=== PATIENT | male | born 1940 | race Caucasian/White ===

== ENCOUNTER 2017-12-03 18:40 | Day surgery (SDC) | payer MEDICAID, OTHER ==
--- NOTE | 2017-12-03 18:48 | CPEKG ---
Heart Rate: 88 RR Interval: 682 P-R Interval: 220 QRSD Interval: 126 QT Interval: 408 QTC Interval: 494 P [place]: 46 QRS [place]: -57 T Wave [place]: 172 EKG Severity - ABNORMAL ECG - EKG Impression: SINUS RHYTHM EKG Impression: FIRST DEGREE AV BLOCK EKG Impression: PROBABLE LEFT ATRIAL ABNORMALITY EKG Impression: IVCD EKG Impression: Inferolateral STT changes, no old ECGs to compare Electronically Signed By: Forrest Lane 06-Dec-2017 08:54:47
[2017-12-03] MEDS ORDERED: NS 1,000 ML IV ONE (18:55)
--- NOTE | 2017-12-03 18:56 | EDPHY ---
H & P Stated Complaint: Cardiac Alert Time Seen by Provider: 12/03/17 18:40 HPI/ROS: CHIEF COMPLAINT: Cardiac alert HISTORY OF PRESENT ILLNESS: The patient presents the ED as a cardiac alert with acute chest pain that began at 6:20 p.m.. The patient has a history of an aortic valve replacement. He is not anticoagulated. He does have a history of hypertension hyperlipidemia. The patient received aspirin prior to arrival. He was noted to be hypotensive. The patient currently complains of 1/10 chest discomfort. His chest discomfort was 5/10 at its worst. The patient reports the pain did radiate to his neck. REVIEW OF SYSTEMS: A comprehensive 10 point review of systems is otherwise negative aside from elements mentioned in the history of present illness. Source: Patient Exam Limitations: No limitations - Personal History Current Tetanus Diphtheria and Acellular Pertussis (TDAP): Yes - Medical/Surgical History Hx Asthma: No Hx Chronic Respiratory Disease: No Hx Diabetes: No Hx Cardiac Disease: Yes Hx Renal Disease: No Hx Cirrhosis: No Hx Alcoholism: No Hx HIV/AIDS: No Hx Splenectomy or Spleen Trauma: No Other PMH: Hypertension, hyperlipidemia aortic valve replacement with aortic repair, lymphoma - Social History Smoking Status: Never smoked - Physical Exam Exam: General Appearance: Alert, mildly diaphoretic, appears slightly uncomfortable Eyes: Pupils equal and round no pallor or injection ENT, Mouth: Mucous membranes moist Respiratory: There are no retractions, lungs are clear to auscultation Cardiovascular: Regular rate and rhythm Gastrointestinal: Abdomen is soft and nontender, no masses, bowel sounds normal Neurological: 5/5 strength all 4 extremities Skin: Warm and dry, no rashes Musculoskeletal: Neck is supple nontender Extremities: 2+ pulses noted all 4 extremities Psychiatric: Patient is oriented X 3, there is no agitation Constitutional: Initial Vital Signs Temperature (C) 36.4 C 12/03/17 18:49 Heart Rate 89 12/03/17 18:49 Respiratory Rate 18 12/03/17 18:49 Blood Pressure 83/37 L 12/03/17 18:49 O2 Sat (%) 99 12/03/17 18:49 O2 Delivery Mode Room Air Allergies/Adverse Reactions: hydrochlorothiazide Allergy (Verified 12/03/17 18:48) Sulfa (Sulfonamide Antibiotics) Allergy (Verified 12/03/17 18:48) Home Medications: Medication Instructions Recorded Aspirin 12/03/17 Medical Decision Making - Diagnostics EKG Interpretation: EKG: Complete interpretation has been separately recorded in the [facility] archive. Summary impression: Left bundle branch block with ST segment elevation noted in the anterior leads with reciprocal ST segment depression in the lateral leads. Positive via [place] criteria. Imaging Results: Imaging Impressions Chest X-Ray 12/03/17 18:44 Impression: Possible mild cardiomegaly without failure. A routine PA and lateral chest would be useful, when the patient is clinically able. ED Course/Re-evaluation: The patient presents the ED with acute chest pain and EKG changes worrisome for ST segment elevation myocardial infarction. The patient was hypotensive prior to arrival. He had an IV established. He received 1 L of normal saline. Dr. Syed Berg is in the emergency department evaluated the patient at 6: 55 p.m.. The patient will be taken emergently to the cardiac catheterization lab. The patient was taken emergently to the cardiac catheterization lab. He will be admitted to the intensive care unit. Differential Diagnosis: Differential diagnosis considered includes acute myocardial infarction, aortic dissection, pulmonary embolism, metabolic abnormality Critical Care Time: Critical care time exclusive of procedures and exclusive of the PA's time was 31 minutes, performed by myself, Alexi Otero MD. The patient presents to the ED with acute chest pain and STEMI. The patient was taken emergently to the cardiac catheterization lab. I did obtain old records from his prior healthcare system. - Data Points Laboratory Results: Laboratory Results 12/03/17 18:40 12/03/17 12/03/17 12/03/17 18:50 18:40 18:40 WBC Pending RBC Pending Hgb Pending POC Hgb 14.6 gm/dL gm/dL (13.7-17.5) Hct Pending POC Hct 43 % % (40-51) MCV Pending MCH Pending MCHC Pending RDW Pending Plt Count Pending MPV Pending Neut % (Auto) Pending Lymph % (Auto) Pending [place] % (Auto) Pending Eos % (Auto) Pending Baso % (Auto) Pending Nucleat RBC Rel Count Pending Absolute Neuts (auto) Pending Absolute Lymphs (auto) Pending Absolute Monos (auto) Pending Absolute Eos (auto) Pending Absolute Basos (auto) Pending Absolute Nucleated RBC Pending Immature Gran % Pending Immature Gran # Pending POC Sodium 143 mEq/L mEq/L (135-145) Sodium 142 mEq/L mEq/L (135-145) POC Potassium 4.4 mEq/L mEq/L (3.3-5.0) Potassium 4.7 mEq/L mEq/L (3.3-5.0) POC Chloride 106 mEq/L mEq/L (97-110) Chloride 105 mEq/L mEq/L (97-110) Carbon Dioxide 22 mEq/l mEq/l (22-31) Anion Gap 15 mEq/L mEq/L (8-16) POC BUN 38 mg/dL H mg/dL (7-23) BUN 37 mg/dL H mg/dL (7-23) Creatinine 1.8 mg/dL H mg/dL (0.7-1.3) POC Creatinine 1.9 mg/dL H mg/dL (0.7-1.3) Estimated GFR 37 Glucose 146 mg/dL H mg/dL (70-100) POC Glucose 155 mg/dL H mg/dL (70-100) Calcium 9.1 mg/dL mg/dL (8.5-10.4) Creatine Kinase 247 IU/L H IU/L (0-224) CK-MB (CK-2) Fraction 6.11 ng/mL H ng/mL (0.00-3.19) CK-MB (CK-2) % 2.5 % % (0.0-4.0) Creatine Kinase Interp NEGATIVE (NEGATIVE) Troponin I 0.013 ng/mL ng/mL (0.000-0.034) Medications Given: Discontinued Medications Clopidogrel Bisulfate (Plavix) 600 mg PO EDNOW ONE Stop: 12/03/17 18:59 Last Admin: 12/03/17 19:01 Dose: 600 mg Sodium Chloride (Ns) 1,000 mls @ 0 mls/hr IV ONCE ONE PRN Reason: Wide Open Stop: 12/03/17 18:56 Last Admin: 12/03/17 18:56 Dose: 1,000 mls Point of Care Test Results: 12/03/17 18:50 POC Sodium 143 POC Potassium 4.4 POC Chloride 106 POC BUN 38 H POC Creatinine 1.9 H POC Glucose 155 H Departure - Departure Disposition: [facility] Inpatient Acute Clinical Impression: ST segment elevation myocardial infarction (STEMI) of anterolateral wall, subsequent episode of care Condition: Critical
[2017-12-03] MEDS ORDERED: CLOPIDOGREL BISULFATE 75 MG TAB PO ONE (18:58)
[2017-12-03] MEDS ORDERED: fentaNYL 100 MCG/2 ML INJ ONE (19:03)
[2017-12-03] MEDS ORDERED: MIDAZOLAM 2 MG/2 ML VIAL ONE (19:03)
[2017-12-03] MEDS ORDERED: LIDOCAINE 1% 300 MG/30 ML SDV ONE (19:03)
[2017-12-03] MEDS ORDERED: IOPAMIDOL (ISOVUE-370) 150 ML BTL IV ONE (19:04)
[2017-12-03 19:18] VITALS: BP 93/63
[2017-12-03 19:25] LABS: CREATINE KINASE 247 IU/L (0-224)
[2017-12-03] MEDS ORDERED: HEPARIN 10,000 UNIT/10 ML MDV (1,000 UNIT/ML) ONE (19:53)
[2017-12-03 20:19] LABS: PLATELET COUNT 59 10^3/uL (150-400)
--- NOTE | 2017-12-03 20:25 | GHP ---
[f rep st] HISTORY AND PHYSICAL DATE OF ADMISSION: 12/03/2017 TIME: 7:17 p.m. This is a cardiac alert note. HISTORY OF PRESENT ILLNESS: The patient is 77 years old. 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 He has been well for 10 years. He was visiting [place] today from [place], when he developed the acute onset of substern al chest pressure associated with nausea, vomiting, and diaphoresis. 911 was activated. Initial fie ld EKG showed ST elevation and cardiac alert was ordered. On arrival, blood pressure is 70 over palp able. He is diaphoretic, ill-appearing male, with ongoing chest discomfort. EKG shows acute anterol ateral injury pattern and he is referred to the cardiac filling station laborer. On my arrival, he is again having ongoing pain. Blood pressure is improved somewhat with fluids, but he remains somewhat shocky. PAST MEDICAL HISTORY: Significant for: 1. Hodgkin disease, status post mantle radiation. 2. History of valvular heart disease. MEDICATIONS: Please see the attached. ALLERGIES: Hydrochlorothiazide, sulfa. REVIEW OF SYSTEMS: Positive for nausea, vomiting. No abdominal pain. He has had no hematuria, blanca temesis, or melena. He has modest shortness of breath without cough. He has had no PND, orthopnea, syncope, or near syncope. A 10-point review of systems otherwise negative. PHYSICAL EXAMINATION: VITAL SIGNS: Initial blood pressure was 70 over palpable. It is currently 10 0 over palpable. GENERAL: An ill-appearing, diaphoretic male in moderate distress. He is alert and oriented, moving extremities normally. VASCULAR: Radial pulses are +2 and equal. Dorsalis pedis are +2 and equal. Femoral pulses are +2 and equal. HEENT: He had no scleral icterus. His orophary nx was clear. NECK: JVP at 13 cm. CHEST: Bibasilar rales, but otherwise clear. He has a sternoto my that is well healed. HEART: He had a regular rate and rhythm with an S4 gallop. ABDOMEN: Somew hat tympanitic without tenderness. There is no rebound or guarding. EXTREMITIES: No edema. SKIN: No rash. X-RAY DATA: Pending. EKG shows acute injury pattern with left bundle branch block and ST depression laterally. IMPRESSION: Acute onset substernal chest pressure consistent with an acute coronary syndrome. Abnor mal EKG confirming. PLAN: Diagnostic coronary angiogram with an eye towards intervention. Risks and benefits of this ap proach were discussed with the patient and we will proceed. /[id number]/MODL
[2017-12-03] MEDS ORDERED: VECURONIUM BROMIDE 10 MG VIAL IVP ONE (20:31)
[2017-12-03] MEDS ORDERED: ROCURONIUM 100 MG/10 ML VIAL ONE (20:32)
[2017-12-03 20:43] LABS: INR 1.72 (0.83-1.16); PROTIME(PATIENT) 20.3 SEC (12.0-15.0)
--- NOTE | 2017-12-03 20:49 | PDDXCAT ---
Diagnostic Cath Note - . 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: Otis Indication: other (Cardiac arrest) - Procedure Access: right groin Procedure: left heart catheterization, coronary angiography, other (PCI, insertion of intra-aortic balloon pump, insertion of a temporary pacing wire, continuous ACLS) - Materials Left Heart Cath size: 6F - Findings-Left Heart Catheterization LM: Unobstructed LAD: Apical occlusion with SHEA grade 2 flow LCX: Widely unobstructed RCA: Proximal thrombotic occlusion with SHEA grade 2 flow LVEF: Not assessed, coronary angiogram did show severe aortic insufficiency suggesting potential acute malfunction of aortic valve prosthesis. This was seen postprocedure. Complications: Continuous CPR with PEA, complete heart block, VF, cardiac . Assessment: Obstructive coronary artery disease with apical occlusion of the LAD , proximal RCA stenosis with successful PCI of the proximal RCA. Query acute aortic valve dysfunction with aortic insufficiency. Pulseless electrical activity on arrival to the dental laboratory worker with continuous CPR for over 45 min, complete heart block with temporary pacemaker insertion, VF x3 requiring cardioversion, ultimate cardiac with pump failure. Intervention: On arrival to the cardiac dental laboratory worker the patient experienced PA with acute cessation of respiration and loss of blood pressure. Initial CPR was performed. Airway was managed. He was administered epinephrine and atropine with adventist of a perfusing rhythm. He was intubated by Anesthesia. Sheaths were inserted in the right femoral artery and right femoral vein. The patient continued to have PA requiring ongoing CPR. ACLS was initiated. The expect patient experienced complete heart block on the monitor. A temporary pacing wire was advanced into the right ventricle and capture was obtained. Limited coronary angiogram was performed to the left coronary artery revealing patent left main, patent LAD to the apex with a occlusion at the apex and SHEA grade 2 flow. The circumflex was unobstructed. Continued CPR was performed with ongoing ACls as described in the case log. A right coronary injection revealed a thrombotic occlusion proximally. It was elected to proceed with PCI quickly. With ongoing CPR a 6 Cymraes JR4 guide was used to intubate the right coronary. A single inflation was performed after passing a wire into the distal RCA with a 3 mm balloon. Repeat angiogram showed no improvement in proximal stenosis. A 2nd inflation was performed improving the lesion. A 3.0 x 12 mm synergy stent was placed on the wire using a [employer]BD[employer] Media as a seth the stent was placed proximally and deployed using a single inflation. Angiogram showed improvement luminal diameter with SHEA grade 2 flow. Intra balloon pump was then placed over the wire and positioned in the aorta with ongoing CPR. This was done with full understanding that the patient had a bioprosthetic aortic valve. With ongoing CPR laboratory data was assessed. His pH was 6.95 with a pCO2 of 80. Potassium was within normal limits. Without CPR there was no perfusing rhythm. After 1 hr was elected to stop ACLS. The patient had no spontaneous breathing or circulation. I discussed this with the family. Review of the diagnostic angiograms did suggest the possibility of acute aortic valve malfunction with what appears to be wide open aortic insufficiency. This would be a more explanatory reason for the patient's acute decompensation with pulseless electrical activity and while there was critical coronary artery disease there was antegrade flow. Will discuss potential autopsy with the patient's family. I would favor an assessment of his aortic valve prosthesis. Patient was pronounced at 8:30 p.m.. Family was notified. He has taken to the ICU to allow his family to visit with him. Final diagnosis Cardiac alert with cardiac arrest define by pulseless electrical activity, complete heart block, ventricular fibrillation with revascularization. Temporary insertion of a temporary pacer for complete heart block, insertion of an intra balloon pump for support. Continue with CPR with failed ACLS. Patient Problems: Problems Problem Status Onset ST segment elevation myocardial infarction (STEMI) of anterolateral wall, subsequent episode of care Acute
--- NOTE | 2017-12-03 20:58 | PDDCSUM ---
Discharge Summary Discharge Summary: note. Patient was admitted from the emergency department to the cardiac catheterization lab in the setting of acute chest pain new left bundle branch block and shock. On arrival to the cardiac catheterization lab suite he developed pulseless electrical activity. CPR was initiated with aggressive ACLS. Cardiac catheterization did reveal obstructive lesions in the apical LAD and proximal RCA. The proximal RCA stenosis was treated. Procedure was complicated by pulseless electrical activity requiring ACLS, complete heart block with insertion of a temporary pacemaker ventricular fibrillation requiring a synchronous cardioversion. Despite aggressive resuscitation the patient succumbed and was pronounced at 8:30 pm. Review of angiogram suggests the potential that this was related to aortic valve prosthetic failure. Even in the presence of significant coronary disease I do not think this explains adequately his initial presentation of shock, development of PEA and heart block. Will ask the patient's family for autopsy to determine cause of . He has taken to the ICU for visitation by the family. Date of admission 12/03/2017. Date of 12/03/2017 at 8:30 p.m..
[2017-12-03] MEDS ORDERED: DOPamine/DEXTROSE 400 MG/250 ML BAG IV ONE (22:18)
[2017-12-03] MEDS ORDERED: ATROPINE SULFATE 1 MG/10 ML SYR ONE (22:18)
[2017-12-03] MEDS ORDERED: EPINEPHrine 1 MG/10 ML SYR IVP ONE (22:18)
[2017-12-03] MEDS ORDERED: SODIUM BICARBONATE 10 MEQ/10 ML SYR IVP ONE (22:18)
[2017-12-03] MEDS ORDERED: CALCIUM CHLORIDE 1 GM/10 ML INJ ONE (22:18)
--- NOTE | 2017-12-05 13:33 | PDANEPAE ---
ANE History of Present Illness Emergent intubation ANE Past Medical History - Cardiovascular History Cardiovascular History Comment: Pt received chest compressions. Code blue called. Mask ventilation performed. Chest movement with each ventilation however SaO2 will not work. Color blue. Neck veins easily visible. Rocuronium 75mg given. glidescope 7.[address] ETCO2 positive. EBBS 22 cm. Cardiology running code. Chest compression for 50 plus minutes - Pulmonary History Hx Oxygen in Use at Home: No - Endocrine History Hx Diabetes: No ANE Review of Systems Review of Systems: ANE Patient History - Allergies Allergies/Adverse Reactions: hydrochlorothiazide Allergy (Verified 12/03/17 18:48) Sulfa (Sulfonamide Antibiotics) Allergy (Verified 12/03/17 18:48) - Home Medications Home Medications: Aspirin EC [Aspirin EC 81 mg (*)] 81 mg PO DAILY 12/03/17 [Last Taken 12/03/17 08:00] Cholecalciferol Vit D3 [Vitamin D3] 400 units PO DAILY 12/03/17 [Last Taken 08:00] Cyanocobalamin [Vitamin B12 (*)] 500 mcg PO MWF@09 12/03/17 [Last Taken 08:00] Herbals/Supplements -Info Only 1 ea PO DAILY 12/03/17 [Last Taken Unknown] Lisinopril [Zestril 5 mg (*)] 5 mg PO DAILY 12/03/17 [Last Taken 12/03/17 08:00] Multivitamins [Multivitamin (*)] 1 tab PO DAILY 12/03/17 [Last Taken 12/03/17 08 :00] Rosuvastatin Calcium [Crestor 20mg (*)] 20 mg PO DAILY 12/03/17 [Last Taken 08:00] Vitamin B Complex [Vitamin B Complex (OTC)] 1 tab PO DAILY 12/03/17 [Last Taken 12/03/17 08:00] - Smoking Hx Smoking Status: Never smoked ANE Labs/Vital Signs - Labs Result Diagrams: 12/03/17 20:05 12/03/17 20:05 - Vital Signs Blood Pressure: 93/63 Heart Rate: 92 Respiratory Rate: 18 O2 Sat (%): 96 Height: 180.34 cm Weight: 74.389 kg ANE Physical Exam - Airway Neck exam: decreased ROM (CPR ) - ASA Status ASA Status: V, E
--- NOTE | 2017-12-05 13:36 | POSTANESTH ---
Post Anesthetic Evaluation Cardiovascular Status: Other, See Comment Respiratory Status: Other, See Comment Level of Consciousness/Mental Status: Other, See Comment Nausea/Vomiting Control: Inadeq, Add Tx Reqired (Pt. did not survive acute cardiac event.)
== END 2017-12-03 22:48 | disposition expired ==
LOC: FCATH 19:05 → F2N 19:05 → UNDOADMIN 19:05 → UNDODISIN 22:48 → FCATH 22:48
PROVIDERS: ATTEND Internal Medicine Interventional Cardiology
PROC: 5A02210 Assistance with Cardiac Output using Balloon Pump, Continuous (ICD-10-PCS; principal; 2017-12-03)
PROC: B2111ZZ Fluoroscopy of Multiple Coronary Arteries using Low Osmolar Contrast (ICD-10-PCS; principal; 2017-12-03)
PROC: 4A023N7 Measurement of Cardiac Sampling and Pressure, Left Heart, Percutaneous Approach (ICD-10-PCS; principal; 2017-12-03)
PROC: 5A2204Z Restoration of Cardiac Rhythm, Single (ICD-10-PCS; principal; 2017-12-03)
PROC: 027034Z Dilation of Coronary Artery, One Artery with Drug-eluting Intraluminal Device, Percutaneous Approach (ICD-10-PCS; principal; 2017-12-03)
DX: T82.897A Other specified complication of cardiac prosthetic devices, implants and grafts, initial encounter (principal); I21.09 ST elevation (STEMI) myocardial infarction involving other coronary artery of anterior wall; I46.2 Cardiac arrest due to underlying cardiac condition; I25.10 Atherosclerotic heart disease of native coronary artery without angina pectoris; I44.2 Atrioventricular block, complete; I49.01 Ventricular fibrillation; C81.90 Hodgkin lymphoma, unspecified, unspecified site; I10 Essential (primary) hypertension; E78.5 Hyperlipidemia, unspecified; Z92.3 Personal history of irradiation; Z95.2 Presence of prosthetic heart valve
CPT/HCPCS: 71045; 92941; 92950; 92953; 93005; 93454; 99291; C1725; C1769; C1887; 82947-QW; C1874; C9606; J0171; J0461; J1265; J1644; J2250; J3010; Q9967